=== PATIENT | female | born 1990 | race African-American/Black ===

== ENCOUNTER 2017-04-11 15:09 | Inpatient (IN) | payer OTHER ==
[2017-04-11] MEDS: LACTATED RINGER'S 1000 ML IV (04:00)
[2017-04-11] MEDS ORDERED: PENICILLIN G POTASSIUM IV 5 MU in D5W MINI-BAG PLUS 100 ML IV (16:55)
[2017-04-11 17:22] LABS: HEMATOCRIT 37.9 % (36.0-47.0); HEMOGLOBIN 12.5 g/dl (12.0-16.0); MEAN CORPUSCULAR HEMOGLOBIN 27.4 pg (27.0-33.0); MEAN CORPUSCULAR VOLUME 83.1 fl (80.0-96.0); PLATELET COUNT, AUTOMATED 129 10^3/uL (150-450); RED BLOOD COUNT 4.56 10^6/uL (4.00-5.40); RED CELL DISTRIBUTION WIDTH 14.9 % (11.5-14.5); WHITE BLOOD COUNT 10.1 10^3/uL (4.0-10.0)
[2017-04-11 17:52] LABS: AMPHETAMINES URINE REFLEX NEGATIVE (NEGATIVE); BARBITURATES URINE REFLEX NEGATIVE (NEGATIVE); BENZODIAZEPINES URINE REFLEX NEGATIVE (NEGATIVE); CANNABINOIDS URINE REFLEX NEGATIVE (NEGATIVE); COCAINE METABOLITE URINE REFLE NEGATIVE (NEGATIVE); METHADONE URINE REFLEX NEGATIVE (NEGATIVE); OPIATES URINE REFLEX NEGATIVE (NEGATIVE); PHENCYCLIDINE URINE REFLEX NEGATIVE (NEGATIVE)
[2017-04-11] MEDS: miSOPROStol 50 MCG 1/2 TAB (S0191) SL (20:19)
[2017-04-11] MEDS: LR 1,000 ML IV (20:26)
[2017-04-11] MEDS ORDERED: PENICILLIN G POTASSIUM IV 2.5 MU in APPROPRIATE DILUENT 1 EA IV (21:00)
[2017-04-12] MEDS: miSOPROStol 50 MCG 1/2 TAB (S0191) SL (00:23)
[2017-04-12] MEDS: CLINDAMYCIN 900 MG in APPROPRIATE DILUENT 1 EA IV (01:30)
[2017-04-12] MEDS ORDERED: FENTANYL 2MCG/ML ROPIVACAINE 0.2% IN 0.9% NACL 200ML IVBAG As Ordered (04:25)
[2017-04-12] MEDS ORDERED: ePHEDrine SULFATE 25 MG/5 ML(5MG/ML) SYRINGE IV (05:15)
[2017-04-12] MEDS ORDERED: LACTATED RINGER'S 1000 ML IV (05:15)
[2017-04-12] MEDS ORDERED: EPIDURAL/PCA KEYS XX (05:15)
[2017-04-12] MEDS ORDERED: REFRIGERATOR IV KEYS XX (05:15)
[2017-04-12] MEDS: FENTANYL/ROPIVACAINE/NACL BAG 200 ML EPIDURAL (05:15)
[2017-04-12] MEDS ORDERED: EPIDURAL COMMENT XX (05:15)
[2017-04-12] MEDS ORDERED: ONDANSETRON 4MG/2ML VIAL (J2405) IV ×3 (05:15→23:15)
[2017-04-12] MEDS ORDERED: diphenhydrAMINE INJ 50MG/ML VIAL (J1200) IV (05:15)
[2017-04-12] MEDS ORDERED: NALOXONE INJ 0.4 MG/1 ML VIAL (J2310) IV ×3 (05:15→22:34)
[2017-04-12] MEDS: PENICILLIN G POTASSIUM IV 5 MU in D5W MINI-BAG PLUS 100 ML IV (06:38)
[2017-04-12] MEDS: PENICILLIN G POTASSIUM IV 2.5 MU in APPROPRIATE DILUENT 1 EA IV ×2 (10:19→15:09)
[2017-04-12] MEDS: LR 1,000 ML IV ×3 (10:44→23:15)
[2017-04-12] MEDS: OXYTOCIN DRIP 30 UNITS in APPROPRIATE DILUENT 1 EA IV (13:11)
[2017-04-12] MEDS: ACETAMINOPHEN 500 MG TAB PO (16:52)
[2017-04-12] MEDS: AMPICILLIN SOD/SULBACTAM SOD 3 GM in D5W MINI-BAG PLUS 100 ML IV (18:23)
[2017-04-12] MEDS ORDERED: BICITRA 30ML SOLN UDC As Ordered (21:08)
[2017-04-12] MEDS ORDERED: ceFAZolin 2 GM/D5W 50 ML IV BAG (J0690 PER 500MG) As Ordered (21:11)
[2017-04-12] MEDS ORDERED: AZITHROMYCIN INJ 500MG VIAL (J0456) As Ordered (21:12)
[2017-04-12] MEDS: AZITHROMYCIN INJ 500 MG, VIAL MATE ADAPTER 1 EACH in D5W 250 ML IV (21:15)
[2017-04-12] MEDS ORDERED: LIDOCAINE PRES-FREE 2% 10ML AMP As Ordered ×2 (21:15)
[2017-04-12] MEDS: BICITRA 30ML SOLN UDC PO (21:15)
[2017-04-12] MEDS ORDERED: SODIUM BICARBONATE 8.4% INJ 50 ML SYRINGE As Ordered (21:17)
[2017-04-12] MEDS ORDERED: OXYTOCIN INJ 10 UNITS/ML VIAL (J2590) As Ordered ×2 (21:53→21:54)
[2017-04-12] MEDS ORDERED: ONDANSETRON 4MG/2ML VIAL (J2405) As Ordered (21:57)
[2017-04-12] MEDS ORDERED: fentaNYL 100 MCG/2 ML INJECTION (J3010) As Ordered (22:06)
[2017-04-12] MEDS ORDERED: PHENYLephrine HCL 500 MCG/5 ML (100MCG/ML) SYRINGE (J2370) As Ordered (22:24)
[2017-04-12] MEDS ORDERED: MORPHINE PRES-FREE INJ 10 MG/10 ML VIAL (J2274) As Ordered (22:25)
[2017-04-12] MEDS ORDERED: KETOROLAC 60 MG/2 ML VIAL (J1885) As Ordered (22:30)
[2017-04-12] MEDS ORDERED: NALBUPHINE HCL 10 MG/ML AMP (J2300) IV (22:34)
[2017-04-12] MEDS ORDERED: METOCLOPRAMIDE INJ 10MG/2ML VIAL (J2765) IV ×2 (22:34→23:15)
[2017-04-12] MEDS ORDERED: miSOPROStol 200 MCG TAB (S0191) As Ordered (22:37)
[2017-04-12] MEDS ORDERED: PERCOCET 5MG/325MG TAB PO ×2 (23:15→23:30)
[2017-04-12] MEDS ORDERED: MEPERIDINE INJ 25 MG/ML VIAL (J2175) IV (23:15)
[2017-04-12] MEDS ORDERED: fentaNYL 100 MCG/2 ML INJECTION (J3010) IV (23:15)
[2017-04-12] MEDS ORDERED: RHOGAM 300 MCG (1500 IU) INJ (J2790) IM (23:30)
[2017-04-12] MEDS ORDERED: MEASLES,MUMPS,RUBELLA VACCINE INJ (MMR-II) (90707) SC (23:30)
[2017-04-12] MEDS: miSOPROStol 200 MCG TAB (S0191) PR (23:30)
[2017-04-13] MEDS: LR 1,000 ML IV (00:55)
[2017-04-13] MEDS: PERCOCET 5MG/325MG TAB PO ×3 (02:08→21:22)
[2017-04-13] MEDS: FENTANYL/ROPIVACAINE/NACL BAG 200 ML EPIDURAL (03:59)
[2017-04-13] MEDS: KETOROLAC 30 MG/ML VIAL (J1885) IV ×3 (06:31→18:17)
[2017-04-13 07:10] LABS: HEMATOCRIT 30.8 % (36.0-47.0); MEAN CORPUSCULAR HGB CONC 33.4 g/dl (32.0-36.5); MEAN CORPUSCULAR VOLUME 80.8 fl (80.0-96.0); PLATELET COUNT, AUTOMATED 116 10^3/uL (150-450); RED BLOOD COUNT 3.81 10^6/uL (4.00-5.40); RED CELL DISTRIBUTION WIDTH 14.6 % (11.5-14.5); WHITE BLOOD COUNT 19.8 10^3/uL (4.0-10.0)
[2017-04-13 07:19] LABS: HEMOGLOBIN 10.3 g/dl (12.0-16.0)
[2017-04-13] MEDS: PRENATAL VITAMINS CHEWABLE TABLET PO (09:00)
[2017-04-13] MEDS: DOCUSATE SODIUM 100 MG CAP PO ×2 (09:19→21:20)
[2017-04-14] MEDS: KETOROLAC 30 MG/ML VIAL (J1885) IV (00:31)
[2017-04-14] MEDS: PERCOCET 5MG/325MG TAB PO ×2 (07:58→16:15)
[2017-04-14] MEDS: PRENATAL VITAMINS CHEWABLE TABLET PO (09:45)
[2017-04-14] MEDS: DOCUSATE SODIUM 100 MG CAP PO ×2 (09:45→21:37)
[2017-04-14] MEDS: IBUPROFEN 800 MG TAB PO ×2 (10:36→19:22)
[2017-04-14] MEDS: LR 1,000 ML IV ×5 (19:26→19:28)
[2017-04-15] MEDS: LR 1,000 ML IV (00:55)
[2017-04-15] MEDS: IBUPROFEN 800 MG TAB PO (03:46)
[2017-04-15] MEDS: PERCOCET 5MG/325MG TAB PO (06:20)
[2017-04-15] MEDS: DOCUSATE SODIUM 100 MG CAP PO (09:36)
[2017-04-15] MEDS: PRENATAL VITAMINS CHEWABLE TABLET PO (09:36)
== END 2017-04-15 10:00 | disposition home or self-care (01) | DRG 766 ==
LOC: M LDI 15:09 → M OBS 04-13 00:35
PROC: 10D00Z1 Extraction of Products of Conception, Low, Open Approach (ICD-10-PCS; principal; 2017-04-12 02:31)
PROC: 3E033VJ Introduction of Other Hormone into Peripheral Vein, Percutaneous Approach (ICD-10-PCS; 2017-04-12 02:31)
DX: O48.0 Post-term pregnancy (principal); O99.824 Streptococcus B carrier state complicating childbirth; O64.0XX0 Obstructed labor due to incomplete rotation of fetal head, not applicable or unspecified; Z3A.41 41 weeks gestation of pregnancy; O99.214 Obesity complicating childbirth; E66.9 Obesity, unspecified; Z37.0 Single live birth; Z68.35 Body mass index [BMI] 35.0-35.9, adult